=== PATIENT | male | born 1990 | race Caucasian/White ===

== ENCOUNTER 2019-09-08 23:27 | Emergency (ER) | payer SELFPAY ==
[~2019-09-08] VITALS: Ht 167.6 cm; Wt 74.8 kg
[2019-09-09] MEDS ORDERED: TETANUS, DIPHTHERIA, PERTUSSIS VAC/PF 0.5ML (>7YR OLD) IM ONE (01:00)
[2019-09-09] MEDS ORDERED: LIDOCAINE HCL/PF 1% 10 MG/ML 5ML VIAL IJ ONE (01:30)
[2019-09-09 02:23] VITALS: BP 109/69
== END 2019-09-09 02:28 | disposition home or self-care (01) ==
LOC: ER 23:27
DX: S01.81XA Laceration without foreign body of other part of head, initial encounter (principal); F12.10 Cannabis abuse, uncomplicated; F15.10 Other stimulant abuse, uncomplicated; W22.8XXA Striking against or struck by other objects, initial encounter; Y93.89 Activity, other specified; Y92.89 Other specified places as the place of occurrence of the external cause; Y99.8 Other external cause status
CPT/HCPCS: 12002; 90471; 90715; 99283; J3490

== ENCOUNTER 2019-09-28 00:27 | Emergency (ER) | payer SELFPAY ==
[~2019-09-28] VITALS: Ht 167.6 cm; Wt 74.0 kg
[2019-09-28 04:59] VITALS: BP 121/64
== END 2019-09-28 05:02 | disposition home or self-care (01) ==
LOC: ER 00:27
DX: S01.01XD Laceration without foreign body of scalp, subsequent encounter (principal); F12.10 Cannabis abuse, uncomplicated; F15.10 Other stimulant abuse, uncomplicated; F17.200 Nicotine dependence, unspecified, uncomplicated; X58.XXXD Exposure to other specified factors, subsequent encounter
CPT/HCPCS: 99281; A4217

== ENCOUNTER 2023-01-15 23:52 | Emergency (ER) | payer SELFPAY ==
[~2023-01-15] VITALS: Ht 167.6 cm; Wt 77.0 kg
[2023-01-16] MEDS ORDERED: LIDOCAINE HCL/EPINEPHRINE 1%-EPI 1:100,000 20 ML VIAL INFIL ONE (00:30)
[2023-01-16] MEDS ORDERED: BACITRACIN ZINC OINT UDPKT TOP ONE (00:30)
[2023-01-16] MEDS ORDERED: HYDROCODONE/ACETAMINOPHEN 5/325MG TABLET PO ONE (00:30)
[2023-01-16] MEDS ORDERED: TETANUS, DIPHTHERIA, PERTUSSIS VAC/PF 0.5ML (>10YR OLD) IM ONE (00:30)
[2023-01-16 00:43] VITALS: BP 111/69
[2023-01-16] MEDS ORDERED: CEPH500C2 MT (00:59)
[2023-01-16] MEDS ORDERED: IBUP-2029 MT (00:59)
== END 2023-01-16 01:28 | disposition home or self-care (01) ==
LOC: ER 23:52
DX: S61.412A Laceration without foreign body of left hand, initial encounter (principal); X58.XXXA Exposure to other specified factors, initial encounter; Y93.89 Activity, other specified; Y92.89 Other specified places as the place of occurrence of the external cause; Y99.8 Other external cause status; F12.10 Cannabis abuse, uncomplicated; F15.10 Other stimulant abuse, uncomplicated
CPT/HCPCS: 12002; 73130; 90471; 90715; 99283; J3490; Z7610